=== PATIENT | female | born 1960 | race Caucasian/White ===

== ENCOUNTER → 2021-01-30 12:10 | Outpatient (CLI) | payer OTHER, SELFPAY ==
--- NOTE | ~2021-01-30 | XR_ITS ---
EXAMINATION: XR hip RT min 2V DATE: 01/30/2021 12:25 INDICATION: Right hip pain. TECHNIQUE: 2 views of right hip were obtained. COMPARISON: None. FINDINGS: Bone alignment is normal. No fracture. Right hip joint space is normal. IMPRESSION: 1. Normal right hip. Reviewed, dictated and finalized at location A. IMPRESSION: 1. Normal right hip.
== END ==
PROVIDERS: PCP Internal Medicine; Visit Provider Clinical Nurse Specialist
DX: M25.551 Pain in right hip (principal)
CPT/HCPCS: 73502

== ENCOUNTER → 2021-05-07 10:15 | Outpatient (CLI) | payer OTHER, SELFPAY ==
--- NOTE | ~2021-05-07 | MM_ITS ---
EXAMINATION: MM screening hanny BI w will HISTORY: Screening mammogram TECHNIQUE: Craniocaudal and mediolateral oblique 3-D tomosynthesis images were obtained and synthetic 2-D images were generated. CAD analysis was submitted and interpreted. COMPARISON: 01/19 2017 bilateral digital screening mammogram BREAST PARENCHYMAL COMPOSITION: There are scattered areas of fibroglandular density. FINDINGS: There is no evidence of suspicious mass, calcification, or architectural distortion to sugg est malignancy in either breast. There has been no suspicious interval change. IMPRESSION: 1. No mammographic evidence of malignancy. 2. Recommend routine screening mammography in one year. BI-RADS Category 1: Negative Reviewed, dictated and finalized at location A.
--- NOTE | ~2021-05-07 | DEXA_ITS ---
Bone Density Report Name: Sachi Bradshaw Age: 61 Sex: Female Ethnicity: White Date of : 1960 Indication: monitoring treatment; postmenopausal Referring Provider: RIKKI, SONAL Study: Bone densitometry was performed. Exam Date: May 07, 2021 Accession number: [id number] Bone Density: Region BMD T-score Z-score Classification AP Spine (L1-L4) 1.023 -0.2 1.4 Normal Femoral Neck (Left) 0.724 -1.1 0.3 Osteopenia Total Hip (Left) 0.948 0.0 1.2 Normal Femoral Neck (Right) 0.753 -0.9 0.5 Normal Total Hip (Right) 0.957 0.1 1.2 Normal Total Hip Mean 0.953 0.1 1.2 Normal World Health Organization criteria for BMD impression classify patients as: Normal (T-score at or above -1.0), Osteopenia (T-score between -1.0 and -2.5), or Osteoporosis (T-score at or below -2.5). 10-year Fracture Risk: FRAX not reported because: Treated for osteoporosis Previous Exams: Region Exam Age BMD T-score BMD Change BMD Change Date g/cm2 vs Baseline vs Previous AP Spine(L1-L4) 05/07/2021 61 1.023 -0.2 -0.048* -0.048* 01/19/2017 56 1.071 0.2 0.000 0.000 12/21/2013 53 1.071 0.2 Total Hip(Left) 05/07/2021 61 0.948 0.0 -0.027* -0.038* 01/19/2017 56 0.986 0.4 0.011 0.011 12/21/2013 53 0.975 0.3 Total Hip(Right) 05/07/2021 61 0.957 0.1 -0.033* -0.072* 01/19/2017 56 1.029 0.7 0.040* 0.040* 12/21/2013 53 0.990 0.4 *Denotes significance at 95% confidence level, LSC for AP Spine = 0.022 g/cm2, LSC for Total Hip = 0.027 g/cm2 Clinical Information Provided by Patient: Is being treated for osteoporosis Has used the following medications: HRT (i.e. estrogen/hormone therapy), Vitamin D Patient maximum height was 68.2 Menopause Age: 42 Drinks caffeinated beverages Onset of menses at age 13 Number of children 2 Impression: The patient has low bone mass, based on the Left Femoral Neck T-score. The BMD for the AP Spine(L1-L4) decreased, changing by -0.048 since the last DXA exam. The BMD for the Total Hip(Left) decreased, changing by -0.038 since the last DXA exam. The BMD for the Total Hip(Right) decreased, changing by -0.072 since the last DXA exam. Discussion: SIGNIFICANT BONE LOSS OBSERVED. Adherence to therapy (including calcium and vitamin D intake) should be assessed. If compliance is not a factor, review
== END ==
PROVIDERS: PCP Internal Medicine; Visit Provider Nurse Practitioner
DX: Z12.31 Encounter for screening mammogram for malignant neoplasm of breast (principal); Z78.0 Asymptomatic menopausal state; M85.852 Other specified disorders of bone density and structure, left thigh
CPT/HCPCS: 77063; 77067; 77080

== ENCOUNTER → 2023-07-02 10:19 | Outpatient (CLI) | payer MEDICARE, SELFPAY ==
--- NOTE | ~2023-07-02 | XR_ITS ---
XR sinus min 3V DATE: 07/02/2023 10:31 INDICATION: Nasal congestion for one month, worse on the right TECHNIQUE: Carmen Helm, lateral and submental vertical views COMPARISON: None FINDINGS: There is cloudiness of the right frontal sinus, right ethmoid air cells and right maxillary sinus. The left frontal sinus, left ethmoid air cells, left maxillary sinus and sphenoid sinuses appear unre markable. The mastoid air cells appear normally developed and aerated. There is soft tissue swelling of the nasal turbinates. IMPRESSION: Right frontal, ethmoid and maxillary sinusitis Soft tissue swelling of the nasal turbinates Reviewed, dictated and finalized at location B.
== END ==
PROVIDERS: PCP Internal Medicine; Visit Provider Nurse Practitioner Family
DX: R09.81 Nasal congestion (principal)
CPT/HCPCS: 70220

== ENCOUNTER 2023-09-07 14:28 | Outpatient (NON) | payer MEDICARE, BC, SELFPAY | END 2023-09-07 14:29 | disposition home or self-care (01) | LOC: ANHLAB 09-08 14:32 | PROVIDERS: PCP Internal Medicine; Visit Provider Nurse Practitioner | DX: C44.321 Squamous cell carcinoma of skin of nose (principal) | CPT/HCPCS: 88305 ==

== ENCOUNTER 2024-08-28 15:04 | Outpatient (CLI) | payer MEDICARE, BC, SELFPAY ==
--- NOTE | ~2024-08-28 | MM_ITS ---
EXAMINATION: MM screening hanny BI w will HISTORY: Screening mammogram TECHNIQUE: Craniocaudal and mediolateral oblique 3-D tomosynthesis images were obtained and synthetic 2-D images were generated. CAD analysis was submitted and interpreted. COMPARISON: 05/07/2021 BREAST PARENCHYMAL COMPOSITION:Not Dense. There are scattered areas of fibroglandular density. FINDINGS: No suspicious mass, calcification, or architectural distortion are identified in either trent ast to suggest malignancy. There has been no suspicious interval change. IMPRESSION: No mammographic evidence of malignancy. Recommend routine screening mammography in one year. BI-RADS Category 1: Negative Reviewed, dictated and finalized at location . [facility]
== END 2024-08-28 15:05 | disposition home or self-care (01) ==
LOC: MICIMG 15:05
PROVIDERS: PCP Internal Medicine; Visit Provider Nurse Practitioner
DX: Z12.31 Encounter for screening mammogram for malignant neoplasm of breast (principal)
CPT/HCPCS: 77063; 77067